=== PATIENT | female | born 1985 | race African-American/Black ===

== ENCOUNTER 2018-12-08 19:38 | Emergency (ER) | payer MEDICAID ==
[~2018-12-08] VITALS: Ht 170.2 cm; Wt 77.3 kg
[2018-12-08 19:39] VITALS: Ht 170.2 cm; Wt 77.3 kg
[2018-12-08 21:27] LABS: ALBUMIN 3.7 g/dL (3.4-5.0); ALKALINE PHOSPHATASE 50 U/L (46-116); ALT (SGPT) 17 U/L (10-68); BILIRUBIN - TOTAL 1.06 mg/dL (0.2-1.3); CALC OSMOLALITY 282 mosm/kg (275-300); CARBON DIOXIDE 16.8 mmol/L (21.0-32.0); CHLORIDE - SERUM 106 mmol/L (98-107); CREATININE - SERUM 0.7 mg/dL (0.6-1.3); GLUCOSE 121 mg/dL (74-106); POTASSIUM - SERUM 4.2 mmol/L (3.5-5.1); PROTEIN - SERUM 6.8 g/dL (6.4-8.2); SODIUM 142 mmol/L (136-145); UREA NITROGEN 11 mg/dL (7-18); eGFR NON AFRICAN AMERICAN > 90 mL/min (90-120)
[2018-12-08 21:28] LABS: AMYLASE - SERUM 91 U/L (25-115); LIPASE 98 U/L (73-393); TROPONIN-I < 0.017 ng/mL (0.000-0.060)
[2018-12-08 21:32] LABS: HCG URINE NEGATIVE (NEGATIVE)
[2018-12-08 21:34] LABS: APPEARANCE CLEAR (CLEAR); BILIRUBIN NEGATIVE (NEGATIVE); COLOR YELLOW (YELLOW); EPITHELIAL CELLS NSEEN /hpf (0-5); GLUCOSE NEGATIVE (NEGATIVE); KETONE SMALL mg/dL (NEGATIVE); NITRITE NEGATIVE (NEGATIVE); PROTEIN NEGATIVE (NEGATIVE); RED CELLS - URINE NONE SEEN /hpf (0-5); SPECIFIC GRAVITY 1.005 (1.005-1.020); UROBILINOGEN NORMAL (NORMAL); WHITE CELLS - URINE NSEEN /hpf (0-5)
[2018-12-08 21:49] LABS: BASOPHILS 0.3 % (0-2); EOSINOPHILS 0 % (0-7); HEMATOCRIT 34.3 % (36.0-48.0); HEMOGLOBIN 11.5 g/dL (12-16); MCH 31.1 pg (26.0-34.0); MCHC 33.5 g/dL (31.0-37.0); MCV 92.7 fL (80.0-100.0); MEAN PLATELET VOLUME 9.8 fL (7.4-10.4); MONOCYTES 3.7 % (2-11); PLATELET COUNT 275 10x3/uL (130-400); RDW 14.2 % (11.5-14.5); WBC 6.8 10x3/uL (4.8-10.8)
[2018-12-09] MEDS ORDERED: ZOFRAN8 MG PO (01:20)
[2018-12-09 01:36] VITALS: BP 108/59
[2018-12-11 17:07] VITALS: Ht 170.2 cm; Wt 77.3 kg
== END 2018-12-09 01:37 | disposition home or self-care (01) ==
LOC: D.ER 19:38
PROVIDERS: Family Medicine
DX: R10.9 Unspecified abdominal pain (principal); R11.0 Nausea; F17.200 Nicotine dependence, unspecified, uncomplicated

== ENCOUNTER 2018-12-10 08:27 | Inpatient (IN) | payer MEDICAID ==
[~2018-12-10] VITALS: Ht 170.2 cm; Wt 68.0 kg
[~2018-12-10 08:27] MED LIST: ZOFRAN8 MG PO
[2018-12-10 09:23] LABS: HCG URINE NEGATIVE (NEGATIVE)
[2018-12-10 09:24] LABS: APPEARANCE CLOUDY (CLEAR); COLOR YELLOW (YELLOW)
[2018-12-10 09:24] LABS: BASOPHILS 0.1 % (0-2); EOSINOPHILS 0.4 % (0-7); HEMATOCRIT 40.4 % (36.0-48.0); IMMATURE GRANULOCYTES 0.1 % (0-5); LYMPHOCYTES 29.3 % (15-50); MCH 31.4 pg (26.0-34.0); MCHC 34.4 g/dL (31.0-37.0); MCV 91.4 fL (80.0-100.0); MEAN PLATELET VOLUME 9.7 fL (7.4-10.4); MONOCYTES 7.6 % (2-11); NEUTROPHILS 62.5 % (40-80); PLATELET COUNT 318 10x3/uL (130-400); RBC 4.42 10x6/uL (4.00-5.40); RDW 14.2 % (11.5-14.5); WBC 7.1 10x3/uL (4.8-10.8)
[2018-12-10 09:25] LABS: BACTERIA MODERATE /hpf (NONE SEEN); BILIRUBIN NEGATIVE (NEGATIVE); GLUCOSE NEGATIVE (NEGATIVE); KETONE MODERATE mg/dL (NEGATIVE); NITRITE NEGATIVE (NEGATIVE); PROTEIN TRACE mg/dL (NEGATIVE); RED CELLS - URINE OCC /hpf (0-5); SPECIFIC GRAVITY 1.025 (1.005-1.020); WHITE CELLS - URINE OCC /hpf (0-5)
[2018-12-10 09:26] LABS: MUCUS <1+ /lpf (NONE SEEN)
[2018-12-10 09:37] LABS: ALBUMIN 3.9 g/dL (3.4-5.0); ALKALINE PHOSPHATASE 51 U/L (46-116); ALT (SGPT) 20 U/L (10-68); BILIRUBIN - TOTAL 1.17 mg/dL (0.2-1.3); CALC OSMOLALITY 279 mosm/kg (275-300); CALCIUM 9.1 mg/dL (8.5-10.1); CHLORIDE - SERUM 103 mmol/L (98-107); GLUCOSE 100 mg/dL (74-106); HEMOGLOBIN 13.9 g/dL (12-16); PROTEIN - SERUM 7.8 g/dL (6.4-8.2); SODIUM 141 mmol/L (136-145); UREA NITROGEN 9 mg/dL (7-18)
[2018-12-10 09:45] VITALS: BP 116/83
[2018-12-10 09:45] LABS: CARBON DIOXIDE 25.2 mmol/L (21.0-32.0); CREATININE - SERUM 0.9 mg/dL (0.6-1.3); eGFR NON AFRICAN AMERICAN 76 mL/min (90-120)
[2018-12-10 09:47] LABS: LIPASE 109 U/L (73-393)
[2018-12-10 09:49] LABS: AMYLASE - SERUM 71 U/L (25-115); TROPONIN-I < 0.017 ng/mL (0.000-0.060)
[2018-12-10 10:45] VITALS: BP 136/71
[2018-12-10 11:45] VITALS: BP 150/69
[2018-12-10 16:27] VITALS: BP 114/50
[2018-12-10 18:30] VITALS: BP 114/60
[2018-12-10 21:37] VITALS: BP 107/53
[2018-12-10 22:53] VITALS: BMI 23.5
[2018-12-11 04:50] VITALS: BP 99/48
[2018-12-11 06:13] LABS: ALBUMIN 3.4 g/dL (3.4-5.0); ALKALINE PHOSPHATASE 48 U/L (46-116); ALT (SGPT) 17 U/L (10-68); BILIRUBIN - TOTAL 0.85 mg/dL (0.2-1.3); CALC OSMOLALITY 276 mosm/kg (275-300); CALCIUM 8.5 mg/dL (8.5-10.1); CARBON DIOXIDE 22.4 mmol/L (21.0-32.0); CHLORIDE - SERUM 104 mmol/L (98-107); CREATININE - SERUM 0.7 mg/dL (0.6-1.3); GLUCOSE 117 mg/dL (74-106); SODIUM 139 mmol/L (136-145); UREA NITROGEN 7 mg/dL (7-18); eGFR NON AFRICAN AMERICAN > 90 mL/min (90-120)
[2018-12-11 06:16] LABS: HEMATOCRIT 36.1 % (36.0-48.0); HEMOGLOBIN 12.5 g/dL (12-16); MCH 31.6 pg (26.0-34.0); MCHC 34.6 g/dL (31.0-37.0); MCV 91.2 fL (80.0-100.0); MEAN PLATELET VOLUME 9.4 fL (7.4-10.4); NEUTROPHILS 81.6 % (40-80); PLATELET COUNT 297 10x3/uL (130-400); RBC 3.96 10x6/uL (4.00-5.40); RDW 14.1 % (11.5-14.5)
[2018-12-11 06:22] LABS: POTASSIUM - SERUM 3.6 mmol/L (3.5-5.1)
[2018-12-11 09:26] VITALS: BP 124/63
[2018-12-11 10:40] VITALS: BMI 23.5
[2018-12-11 14:04] VITALS: BP 125/75
[2018-12-11 17:07] VITALS: Ht 170.2 cm; Wt 68.0 kg
[2018-12-11 17:09] VITALS: BP 114/63
[2018-12-11 20:00] VITALS: BP 110/58
[2018-12-12] VITALS: BP 107/73
[2018-12-12 04:00] VITALS: BP 113/55
[2018-12-12 05:30] LABS: CALC OSMOLALITY 286 mosm/kg (275-300); CALCIUM 8.4 mg/dL (8.5-10.1); CARBON DIOXIDE 23.9 mmol/L (21.0-32.0); CHLORIDE - SERUM 109 mmol/L (98-107); CREATININE - SERUM 0.7 mg/dL (0.6-1.3); GLUCOSE 137 mg/dL (74-106); POTASSIUM - SERUM 3.6 mmol/L (3.5-5.1); SODIUM 144 mmol/L (136-145); UREA NITROGEN 7 mg/dL (7-18); eGFR NON AFRICAN AMERICAN > 90 mL/min (90-120)
[2018-12-12 05:31] LABS: APTT 29.7 SECONDS (22.8-39.4); INR 1.35 (0.85-1.17); PROTIME 16.1 SECONDS (11.6-15.0)
[2018-12-12 05:33] LABS: BASOPHILS 0 % (0-2); EOSINOPHILS 0 % (0-7); HEMOGLOBIN 11.1 g/dL (12-16); IMMATURE GRANULOCYTES 0.2 % (0-5); LYMPHOCYTES 8.9 % (15-50); MCH 30.5 pg (26.0-34.0); MCHC 33.6 g/dL (31.0-37.0); MCV 90.7 fL (80.0-100.0); MEAN PLATELET VOLUME 10.4 fL (7.4-10.4); MONOCYTES 3.9 % (2-11); PLATELET COUNT 293 10x3/uL (130-400); RBC 3.64 10x6/uL (4.00-5.40); WBC 11.5 10x3/uL (4.8-10.8)
[2018-12-12 08:28] VITALS: BP 125/70
[2018-12-12 15:58] VITALS: BP 108/70
[2018-12-12] MEDS ORDERED: STERAPRED 5MG 125 MG PO (16:21)
== END 2018-12-12 17:40 | disposition home or self-care (01) | DRG 392 ==
LOC: D.ER 08:27 → D.MS 14:11 → D.EDHOLD 14:11 → D.MS 17:31
PROVIDERS: Family Medicine; Internal Medicine Gastroenterology; ADMIT Surgery
PROC: 0DBE8ZX Excision of Large Intestine, Via Natural or Artificial Opening Endoscopic, Diagnostic (ICD-10-PCS; principal; 2018-12-12 07:00)
DX: R10.32 Left lower quadrant pain (principal); R11.2 Nausea with vomiting, unspecified; K63.5 Polyp of colon

== ENCOUNTER → 2018-12-18 11:17 | Outpatient (CLI) | payer MEDICAID ==
[2018-12-11 17:07] VITALS: BMI 23.5
[~2018-12-18 11:17] MED LIST changes: +OMEPRAZOLE20 M1 PO; +STERAPRED 5MG 125 MG PO; +ZOFRAN4 MG PO
== END | disposition home or self-care (01) ==
LOC: D.CT 11:17
DX: R10.9 Unspecified abdominal pain (principal)

== ENCOUNTER 2019-01-02 17:38 | Emergency (ER) | payer MEDICAID ==
[~2019-01-02] VITALS: Ht 170.2 cm; Wt 63.6 kg
[~2019-01-02 17:38] MED LIST changes: -OMEPRAZOLE20 M1 PO; -ZOFRAN4 MG PO
[2019-01-02 18:37] VITALS: Ht 170.2 cm; Wt 63.6 kg
[2019-01-02 19:30] LABS: BASOPHILS 0.2 % (0-2); EOSINOPHILS 0.2 % (0-7); HEMATOCRIT 38.8 % (36.0-48.0); HEMOGLOBIN 13.5 g/dL (12-16); LYMPHOCYTES 19.3 % (15-50); MCH 30.8 pg (26.0-34.0); MCHC 34.8 g/dL (31.0-37.0); MCV 88.6 fL (80.0-100.0); MONOCYTES 5.1 % (2-11); NEUTROPHILS 75.2 % (40-80); PLATELET COUNT 287 10x3/uL (130-400); RBC 4.38 10x6/uL (4.00-5.40); RDW 14.1 % (11.5-14.5); WBC 4.9 10x3/uL (4.8-10.8)
[2019-01-02 19:52] LABS: ALBUMIN 4.1 g/dL (3.4-5.0); ALKALINE PHOSPHATASE 53 U/L (46-116); ALT (SGPT) 25 U/L (10-68); BILIRUBIN - TOTAL 1.04 mg/dL (0.2-1.3); CALC OSMOLALITY 283 mosm/kg (275-300); CALCIUM 8.8 mg/dL (8.5-10.1); CARBON DIOXIDE 25.2 mmol/L (21.0-32.0); CHLORIDE - SERUM 104 mmol/L (98-107); CREATININE - SERUM 0.8 mg/dL (0.6-1.3); GLUCOSE 132 mg/dL (74-106); POTASSIUM - SERUM 3.6 mmol/L (3.5-5.1); PROTEIN - SERUM 7.5 g/dL (6.4-8.2); SODIUM 142 mmol/L (136-145); UREA NITROGEN 11 mg/dL (7-18); eGFR NON AFRICAN AMERICAN 87 mL/min (90-120)
[2019-01-02 19:56] LABS: AMYLASE - SERUM 135 U/L (25-115); LIPASE 119 U/L (73-393); TROPONIN-I < 0.017 ng/mL (0.000-0.060)
[2019-01-02 21:47] LABS: APPEARANCE HAZY (CLEAR); BILIRUBIN NEGATIVE (NEGATIVE); COLOR YELLOW (YELLOW); GLUCOSE NEGATIVE (NEGATIVE); KETONE MODERATE mg/dL (NEGATIVE); NITRITE NEGATIVE (NEGATIVE); PROTEIN TRACE mg/dL (NEGATIVE); SPECIFIC GRAVITY 1.025 (1.005-1.020); UROBILINOGEN NORMAL (NORMAL)
[2019-01-02 21:49] LABS: AMORPHOUS SEDIMENT <1+ /lpf (NONE SEEN); BACTERIA FEW /hpf (NONE SEEN); EPITHELIAL CELLS OCC /hpf (0-5); WHITE CELLS - URINE OCC /hpf (0-5)
[2019-01-02 22:25] LABS: HCG URINE NEGATIVE (NEGATIVE)
[2019-01-02 23:43] LABS: UDS - AMPHET NEGATIVE QUAL (NEGATIVE); UDS - BARB NEGATIVE QUAL (NEGATIVE); UDS - BENZO NEGATIVE QUAL (NEGATIVE); UDS - COCAINE NEGATIVE QUAL (NEGATIVE); UDS - OPIATE NEGATIVE QUAL (NEGATIVE); UDS - PCP NEGATIVE QUAL (NEGATIVE); UDS - THC POSITIVE QUAL (NEGATIVE)
[2019-01-03] MEDS ORDERED: ZOFRAN4 MG PO (00:22)
[2019-01-03] MEDS ORDERED: OMEPRAZOLE20 M1 PO (00:22)
[2019-01-03 00:39] VITALS: BP 111/56
== END 2019-01-03 00:39 | disposition home or self-care (01) ==
LOC: D.ER 17:38
PROVIDERS: Emergency Medicine; Family Medicine
DX: R10.9 Unspecified abdominal pain (principal); F17.200 Nicotine dependence, unspecified, uncomplicated; R00.1 Bradycardia, unspecified

== ENCOUNTER 2019-02-07 14:45 | Emergency (ER) | payer MEDICAID ==
[~2019-02-07] VITALS: Ht 170.2 cm; Wt 63.6 kg
[~2019-02-07 14:45] MED LIST changes: +OMEPRAZOLE20 M1 PO; +ZOFRAN4 MG PO
[2019-02-07 14:48] VITALS: Ht 170.2 cm; Wt 63.6 kg
[2019-02-07 15:25] LABS: BASOPHILS 0.2 % (0-2); EOSINOPHILS 0.1 % (0-7); HEMATOCRIT 39.3 % (36.0-48.0); HEMOGLOBIN 13.5 g/dL (12-16); IMMATURE GRANULOCYTES 0.2 % (0-5); LYMPHOCYTES 12.9 % (15-50); MCHC 34.4 g/dL (31.0-37.0); MCV 90.1 fL (80.0-100.0); MEAN PLATELET VOLUME 9.7 fL (7.4-10.4); MONOCYTES 3.9 % (2-11); NEUTROPHILS 82.7 % (40-80); PLATELET COUNT 280 10x3/uL (130-400); RBC 4.36 10x6/uL (4.00-5.40); RDW 14.3 % (11.5-14.5); WBC 9.2 10x3/uL (4.8-10.8)
[2019-02-07 15:35] LABS: ALBUMIN 3.9 g/dL (3.4-5.0); ALKALINE PHOSPHATASE 62 U/L (46-116); ALT (SGPT) 11 U/L (10-68); AMYLASE - SERUM 126 U/L (25-115); BILIRUBIN - TOTAL 0.76 mg/dL (0.2-1.3); CALC OSMOLALITY 286 mosm/kg (275-300); CALCIUM 9.2 mg/dL (8.5-10.1); CARBON DIOXIDE 24.7 mmol/L (21.0-32.0); CHLORIDE - SERUM 107 mmol/L (98-107); CREATININE - SERUM 0.8 mg/dL (0.6-1.3); GLUCOSE 111 mg/dL (74-106); LIPASE 117 U/L (73-393); POTASSIUM - SERUM 3.2 mmol/L (3.5-5.1); SODIUM 144 mmol/L (136-145); UREA NITROGEN 11 mg/dL (7-18); eGFR NON AFRICAN AMERICAN 87 mL/min (90-120)
[2019-02-07] MEDS ORDERED: PHENERGAN25 M1 PO (18:42)
[2019-02-07] MEDS ORDERED: CARAFATE1 G/10 ML PO (18:42)
[2019-02-07 19:43] VITALS: BP 124/67
[2019-02-08] MEDS ORDERED: BENTYL 20 MG TA20 MG PO (12:45)
== END 2019-02-07 19:43 | disposition home or self-care (01) ==
LOC: D.ER 14:45
PROVIDERS: Family Medicine
DX: R10.9 Unspecified abdominal pain (principal); R11.2 Nausea with vomiting, unspecified

== ENCOUNTER 2019-02-08 09:41 | Emergency (ER) | payer MEDICAID ==
[~2019-02-08] VITALS: Ht 170.2 cm; Wt 70.5 kg
[~2019-02-08 09:41] MED LIST changes: +CARAFATE1 G/10 ML PO; +PHENERGAN25 M1 PO
[2019-02-08 09:44] VITALS: Ht 170.2 cm; Wt 70.5 kg
[2019-02-08] MEDS ORDERED: BENTYL 20 MG TA20 MG PO (12:45)
[2019-02-08 13:00] VITALS: BP 125/68
== END 2019-02-08 13:03 | disposition home or self-care (01) ==
LOC: D.ER 09:41
DX: R10.9 Unspecified abdominal pain (principal); R11.2 Nausea with vomiting, unspecified

== ENCOUNTER 2019-02-10 15:33 | Emergency (ER) | payer MEDICAID ==
[~2019-02-10] VITALS: Ht 170.2 cm; Wt 70.5 kg
[~2019-02-10 15:33] MED LIST changes: +BENTYL 20 MG TA20 MG PO
[2019-02-10 16:29] VITALS: Ht 170.2 cm; Wt 70.5 kg
[2019-02-10] MEDS ORDERED: HYDROCODON-ACE1 EAC7 PO (16:32)
[2019-02-10] MEDS ORDERED: VIBRAMYCIN 100100 MG PO (16:33)
[2019-02-10 17:07] LABS: BASOPHILS 0.1 % (0-2); EOSINOPHILS 0.1 % (0-7); HEMATOCRIT 36.1 % (36.0-48.0); HEMOGLOBIN 12.6 g/dL (12-16); IMMATURE GRANULOCYTES 0.3 % (0-5); LYMPHOCYTES 11.3 % (15-50); MCHC 34.9 g/dL (31.0-37.0); MCV 88.7 fL (80.0-100.0); MEAN PLATELET VOLUME 9.9 fL (7.4-10.4); MONOCYTES 5.2 % (2-11); PLATELET COUNT 229 10x3/uL (130-400); RBC 4.07 10x6/uL (4.00-5.40); WBC 14.2 10x3/uL (4.8-10.8)
[2019-02-10 17:23] LABS: ALBUMIN 3.5 g/dL (3.4-5.0); ALKALINE PHOSPHATASE 58 U/L (46-116); ALT (SGPT) 18 U/L (10-68); AMYLASE - SERUM 44 U/L (25-115); BILIRUBIN - TOTAL 0.62 mg/dL (0.2-1.3); CALC OSMOLALITY 275 mosm/kg (275-300); CALCIUM 8.4 mg/dL (8.5-10.1); CARBON DIOXIDE 29.3 mmol/L (21.0-32.0); CHLORIDE - SERUM 102 mmol/L (98-107); CREATININE - SERUM 0.8 mg/dL (0.6-1.3); GLUCOSE 95 mg/dL (74-106); LIPASE 115 U/L (73-393); PROTEIN - SERUM 6.9 g/dL (6.4-8.2); SODIUM 140 mmol/L (136-145); UREA NITROGEN 5 mg/dL (7-18); eGFR NON AFRICAN AMERICAN 87 mL/min (90-120)
[2019-02-10 17:29] LABS: UDS - AMPHET NEGATIVE QUAL (NEGATIVE); UDS - BARB NEGATIVE QUAL (NEGATIVE); UDS - BENZO POSITIVE QUAL (NEGATIVE); UDS - COCAINE NEGATIVE QUAL (NEGATIVE); UDS - OPIATE POSITIVE QUAL (NEGATIVE); UDS - PCP NEGATIVE QUAL (NEGATIVE); UDS - THC POSITIVE QUAL (NEGATIVE)
[2019-02-10 17:30] LABS: POTASSIUM - SERUM 2.5 mmol/L (3.5-5.1)
[2019-02-10 17:42] LABS: APPEARANCE CLEAR (CLEAR); BILIRUBIN NEGATIVE (NEGATIVE); COLOR YELLOW (YELLOW); GLUCOSE NEGATIVE (NEGATIVE); KETONE MODERATE mg/dL (NEGATIVE); NITRITE NEGATIVE (NEGATIVE); PROTEIN TRACE mg/dL (NEGATIVE); SPECIFIC GRAVITY 1.015 (1.005-1.020); UROBILINOGEN NORMAL (NORMAL)
[2019-02-10 17:44] LABS: BACTERIA MODERATE /hpf (NONE SEEN); RED CELLS - URINE 0-5 /hpf (0-5)
[2019-02-10 18:50] LABS: HCG SERUM NEGATIVE (NEGATIVE)
[2019-02-10] MEDS ORDERED: TORADOL10 MG PO (21:01)
[2019-02-10 21:37] VITALS: BP 131/70
[2019-02-14 03:10] LABS: CHLAMYDIA TRACHOMATIS, NAA Negative (Negative)
== END 2019-02-10 21:37 | disposition home or self-care (01) ==
LOC: D.ER 15:33
PROVIDERS: Family Medicine
DX: R10.2 Pelvic and perineal pain (principal); E87.6 Hypokalemia; R11.2 Nausea with vomiting, unspecified; G89.18 Other acute postprocedural pain